=== PATIENT | female | born 1965 | race Asian ===

== ENCOUNTER → 2024-03-13 01:13 | Outpatient (CLI) | payer BC, SELFPAY ==
--- NOTE | 2024-03-13 | ETT_ITS ---
APPROVED REPORT Exam: Exercise Treadmill Patient Location: Out-Patient Room/Bed: Stress Nurse: Chrissy Rider RN Ordering Provider:ALEXSANDRA VIERA, Contact Number: [phone] BMI: 26.60 Baseline Rhythm: Sinus Rhythm Indications: Other chest pain, Medical History Medical History: Autoimmune hepatitis, chronic pain, hx lumbar fusion, HLD, migraine, sciatica Cardiac Medications: Metoprolol, atorvastatin, azathioprine, budesonide, gabapentin Allergies: Bee pollen Cardiac Risk Factors: Family hx, former smoker Previous Cardiac Procedures: None Pretest Chest Pain Characteristics: None Exercise History: Physically active Physical Disabilities: None Lung Sounds: Clear to auscultation Heart Sounds: Regular Stress Test Details Test: Exercise stress testing was performed using a Patrice protocol. Rest Stress HR Resting HR Supine: 73 bpm Max Heart Rate (APMHR): 163 bpm Resting HR Standin bpm Target HR (85% APMHR): 139 bpm Max HR Achieved: 158 bpm % of APMHR: 97 Recovery HR: 78 bpm HR response to stress: Normal HR response to stress BP Resting BP Supine: 118/68 mmHg Resting BP Standin/70 mmHg Max BP: 180/80 mmHg Recovery BP: 112/68 mmHg BP response to stress: Normal blood pressure response to stress. ECG Resting ECG: Sinus Rhythm Ectopy: None Stress ECG: Sinus Tachycardia ST Change: No significant ST segment changes noted Arrhythmia: Rare PVC's Recovery ECG: Sinus Rhythm Recovery ST Change: No significant ST segment changes noted Clinical Reason for Termination: Target HR Achieved, Fatigue Stress Symptoms: General Fatigue Exercise duration: 06 min46 sec Highest Stage Reached: Stage 2: 2.5 mph at 12% grade. Exercise capacity: 8.22 METs Angina Score: None [place] Treadmill Score: 6.2 Rate Pressure Product: [id number] Stress ECG Conclusion 1. Resting electrocardiogram was normal 2. Patient exercised on the Patrice protocol and completed a workload of 8.22 METS 3. Normal heart rate and blood pressure response to exercise. Patient achieved 97% of maximal predic dong heart rate for age 4. There was no electrocardiographic evidence of myocardial ischemia 5. there were no significant dysrhythmias [place] Treadmill Score is 6.2 which is Low risk. Stress Test Summary STAGE Time (mins) Speed (mph) Grade (%) HR BP SpO2 SYMPTOMS METS Supine 73 118/68 96 Standing 68 122/70 1 3 1.7 10 109 140/80 4.5 2 6 2.5 12 158 7 1 min recovery 124 180/80 98 3 min recovery 83 142/76 6 min recovery 78 112/68
== END ==
PROVIDERS: PCP Physician Assistant; Visit Provider Obstetrics & Gynecology
DX: R07.89 Other chest pain (principal)
CPT/HCPCS: 93017